=== PATIENT | female | born 1995 | race Caucasian/White ===

== ENCOUNTER 2020-06-20 17:45 | Emergency (ER) | payer OTHER, SELFPAY ==
--- NOTE | ~2020-06-20 | CT_ITS ---
EXAMINATION: CT brain wo con DATE: 06/20/2020 18:42 INDICATION: Head injury. Headache. TECHNIQUE: Computed tomography (CT) of the head was performed without intravenous contrast. The mA wa s adjusted according to patient size. Iterative reconstruction technique was employed. The dose-lengt h product was 605.33 mGy-cm. COMPARISON: None FINDINGS: There is no intracranial hemorrhage, acute infarction, or abnormal intracranial mass lesion . The ventricles are normal in size. The orbits are normal. The paranasal sinuses are clear. The mast oid air cells are normal. There is right posterior scalp soft tissue swelling. IMPRESSION: 1. Normal brain. Reviewed, dictated and finalized at location A. IMPRESSION: 1. Normal brain.
[2020-06-20 17:46] VITALS: BP 111/78; PULSE 84; RESP 17; TEMP 36.7; O2SAT 98
--- NOTE | 2020-06-20 18:12 | PC.NURSE ---
pt c/o pain down left side of neck and into left shoulder.
--- NOTE | 2020-06-20 18:49 | ED.HEATRA ---
HPI - Head Injury General Chief complaint: Head Injury Stated complaint: head injury Time Seen by Provider: 06/20/20 18:08 Source: patient Mode of arrival: ambulatory Limitations: no limitations History of Present Illness HPI Narrative: Patient presents with chief complaints of laceration to the posterior aspect of her head accompanied by headache, slightly blurry vision, nausea that began after falling backwards off her long board and striking her head on the asphalt. Patient states that she feels as if she was going to pass out but she does not think that she did. Patient states initially she had very blurry vision, tinnitus, and was unsteady on her feet. Patient states that she still feels a little off balance when standing. Patient denies any other areas of pain or injury. Patient denies recent head injury or any medical conditions. Patient reports taking for acne and control pills. Related Data Home Medications Medication Instructions Recorded Confirmed fluticasone propionate [Flonase 1 spray INTRANASAL BID 06/20/20 Allergy Relief] loratadine [Claritin] 10 mg PO 06/20/20 Allergies Allergy/AdvReac Type Severity Reaction Status Date / Time amoxicillin Allergy Unknown Hives Verified 06/20/20 18:08 Review of Systems Review of Systems: Narrative: CONSTITUTIONAL: Denies fever, chills, or sweats. EYES: Reports slightly blurry vision denies redness, or discharge. ENT: Reports resolved tinnitus denies rhinorrhea, congestion, sore throat, or otalgia. CARDIOVASCULAR: Denies chest pain, palpitations, or edema. RESPIRATORY: Denies cough or dyspnea. GASTROINTESTINAL: Denies abdominal pain, nausea, vomiting, or diarrhea. GENITOURINARY: Denies dysuria or hematuria. SKIN: Denies rash or itching. MUSCULOSKELETAL: Denies back pain, myalgia, or joint pain NEUROLOGIC: Reports headache denies numbness, dizziness, or weakness. PSYCHIATRIC: Denies anxiety or depression. [facility] Family History Family History (Updated 02/09/17 @ 12:27 by DOCTOR UNKNOWN) Grandparent Diabetes mellitus Family history of lung cancer Family history of thyroid disease Father Family history of sleep apnea Social History Social History Smoking status: Never smoker Second hand tobacco smoke exposure: No Alcohol intake: never Gender identity (if verbalized by the patient): Female Exam Narrative: Exam Narrative: GENERAL: Well-appearing, well-nourished. HEAD: 3 cm L-shaped laceration to the posterior aspect of her scalp. Superficial, well approximated and non-gaping. No skull dividing palpated. EYES: PERRLA and EOMI. no hyphema ENT: Nares clear, no rhinorrhea or epistaxis. Mucous membranes moist. Oropharynx without tonsillar hypertrophy exudate or other lesions. Bilateral TMs pearly gilbert nonbulging. No hemotympanum. NECK: Supple. No adenopathy or masses. No vertebral tenderness or loss of ROM. CHEST: Clear to auscultation. No respiratory distress. No wheezes rales or rhonchi HEART: Regular rate and rhythm. EXTREMITIES: No acute changes in ROM. No edema. No pain with range of motion SKIN: Warm, dry, no rash. NEURO: No focal deficits. Alert and oriented x3. PSYCH: Normal mood and affect. Course Vital Signs Vital signs: Vital Signs Temperature 98.1 F 06/20/20 17:46 Pulse Rate 84 06/20/20 17:46 Respiratory Rate 17 06/20/20 17:46 Blood Pressure 111/78 06/20/20 17:46 Pulse Oximetry 98 06/20/20 17:46 Temperature 98.1 F 06/20/20 17:46 Pulse Rate 84 06/20/20 17:46 Respiratory Rate 17 06/20/20 17:46 Blood Pressure 111/78 06/20/20 17:46 Pulse Oximetry 98 06/20/20 17:46 MDM - Head Injury MDM Narrative Medical decision making narrative: Patient is concerned that with a headache, blurry vision (although improving), and nausea that she may have brain injury. Discussed with the patient risk associated with observation versus CT imaging. Wound care instructions and follow-up ins
[2020-06-20] MEDS: ONDANSETRON HCL ODT 4 MG TABLET PO (19:27)
[2020-06-20 20:23] VITALS: BP 122/74; PULSE 80; RESP 19; TEMP 36.3; O2SAT 98
[2020-06-20] MEDS: TETANUS,DIPHTHERIA,AC PERTUSSIS ADULT (0.5 ML) BOOSTRIX IM (20:23)
== END 2020-06-20 20:24 | disposition home or self-care (01) ==
PROVIDERS: Emergency Provider Emergency Medicine; PCP Family Medicine
DX: S09.90XA Unspecified injury of head, initial encounter (principal); V00.131A Fall from skateboard, initial encounter; Z23 Encounter for immunization
CPT/HCPCS: 70450; 90471; 90715; 99284; A9270

== ENCOUNTER 2024-04-19 14:21 | Outpatient (CLI) | payer OTHER, SELFPAY ==
[2024-04-21 12:39] LABS: NIL 0.01 IU/mL; Quantiferon TB Plus, 1T NEGATIVE (NEGATIVE)
== END 2024-04-19 14:22 | disposition home or self-care (01) ==
LOC: ANHGOSHLAB 14:22
PROVIDERS: PCP Family Medicine; Visit Provider Nurse Practitioner
DX: Z11.1 Encounter for screening for respiratory tuberculosis (principal)
CPT/HCPCS: 36415; 86480

== ENCOUNTER 2025-05-04 10:49 | Outpatient (CLI) | payer BC, SELFPAY ==
--- OUTSIDE RECORDS SUMMARY | 2025-05-04 10:51 | XMS_ITS | Referral Summary ---
Author Organization [facility] Address [address] [place] [id number] Care Team Providers Care Loan Funder Name Role Phone Vazquez Brown MD Primary Care Provider [phone] Leanne Caicedo MD Unavailable [phone] Allergies Active Allergy Reactions Criticality Noted Date Comments Amoxicillin Hives Medium 01/13/2021 Medications buPROPion XL (WELLBUTRIN XL) 150 mg 24 hr tablet Take 150 mg by mouth daily 1 Active clindamycin (CLEOCIN T) 1 % lotion Apply topically 2 (two) times a day Active tretinoin (RETIN-A) 0.025 % cream Apply topically nightly Active naproxen (NAPROSYN) 500 mg tablet Take 500 mg by mouth 2 (two) times a day with meals Active spironolactone (ALDACTONE) 100 mg tabletIndicatio ns:Acne vulgaris Take 1 tablet (100 mg total) by mouth daily Start with 50mg (1/2 tablet) for 1 week 30 tablet 11 4 07/18/20 25 Active cyproheptadine (PERIACTIN) 4 mg tabletIndicatio ns:Cholinergic urticaria Take 1 tablet (4 mg total) by mouth 3 (three) times a day 270 tablet 3 4 07/18/20 25 Active aluminum chloride (DRYSOL) 20 % external solutionIndicat ions:Hyperhidro sis Thin layer to AA axilla nightly 60 mL 11 4 Active Active Problems No known active problems Social History Tobacco Use Types Packs/Day Years Used Date Smoking Tobacco: Never Smokeless Tobacco: Never Tobacco Cessation:Counseling Given: Not Answered Comments Unknown Sex and Gender Information Value Date Recorded Sex Assigned at Not on file 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 Gender Identity Not on file Sexual Orientation Not on file Last Filed Vital Signs Vital Sign Reading Time Taken Comments Blood Pressure 110/62 08/03/2022 10:59 AM CDT Pulse - - Temperature - - Respiratory Rate - - Oxygen Saturation - - Inhaled Oxygen Concentration - - Weight 54.9 kg (121 lb) 08/03/2022 10:59 AM CDT Height 162.6 cm (5' 4) 08/03/2022 10:59 AM CDT Body Mass Index 20.77 08/03/2022 10:59 AM CDT Plan of Treatment Not on file Insurance [facility] CHOICE PLUS [facility] HMO/PPO Address: [address] [place] [address] [employer] Member Subscriber Plan / Payer (Ef fective 2006-Present) Name:Cristine Kilpatrick Relation to Subscriber:Self Name:Cristine Kilpatrick Payer ID:[id number] (NAIC) Group ID:[id number] Type:[employer]IG[employer] HMO/PPO Address: [address] [place] [address] Care Teams Loan Funder Relationship Specialty Start Date End Date Vazquez Brown MD [address] [place] [address] PCP - General Family Practice 10/08/20 [place] [address] [place] [address] Consulting Physician Obstetrics and Gynecology 07/31/22
--- OUTSIDE RECORDS SUMMARY | 2025-05-04 10:51 | XMS_ITS | Clinical Summary ---
Author Organization [address] [address] Care Team Providers Care Ground Operations Supervisor Name Role Phone Vazquez Brown MD Primary Care Provider [phone] Leanne Caicedo MD Unavailable [phone] Allergies Active Allergy Reactions Criticality Noted Date [...] Active Active Problems No known active problems Surgical History Surgery Date Site/Laterality Comments WISDOM TOOTH EXTRACTION 10/04/2011 - 10/03/2012 Medical History Medical History Date Comments Anxiety Acne Family History Medical History Relation Name Comments No Known Problems Father No Known Problems Mother Breast cancer Neg Hx Colon cancer Neg Hx Ovarian cancer Neg Hx Relation Name Status Comments Father Alive Mother Alive Social History Tobacco Use Types Packs/Day Years Used Date Smoking Tobacco: Never Smokeless Tobacco: Never Tobacco Cessation:Counseling Given: Not Answered Comments Unknown Sex and Gender Information Value Date Recorded Sex Assigned at Not on file 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 Gender Identity Not on file Sexual Orientation Not on file Obstetrics History Para Term AB IAB SAB Ectopic Multiple Livin g Live Births 0 0 0 0 0 0 0 0 0 0 0 Last Filed Vital Signs Vital Sign Reading [...] 08/03/2022 10:59 AM CDT Plan of Treatment Health Maintenance Due Date Last Done Comments Cervical Cancer Screening 1996 Depression Screening 1996 Hepatitis C Screening 1996 Varicella Vaccines (1 of 2 - 13+ 2-dose series) 2009 Hepatitis B Screening 2014 Regular Well Visit/Exam 18-64 2014 HPV Vaccines (1 - 3-dose SCD M series) 2023 Influenza Vaccine (#1) 2025 DTaP/Tdap/Td Vaccine (3 - Td or Tdap) 06/20/2030 06/20/2020, 06/15/2013 Pneumococcal vaccine <65 Aged Out No longer eligible based on patient's age to complete this topic Insurance [facility] CHOICE PLUS [employer] IBEW Member Subscriber Plan / Payer (Ef fective 2006-Present) Name:Cristine Kilpatrick Relation to Subscriber:Self Name:Cristine Kilpatrick Payer ID:[id number] (NAIC) Group ID:[id number] Type:CIG[employer] HMO/PPO Address: [address] [place] [address] Care Teams Ground Operations Supervisor Relationship Specialty Start Date End Date Vazquze Brown MD [address] [place] [address] PCP - General Family Practice 10/08/20 [place] [address] [place] [address] Consulting Physician Obstetrics and Gynecology 07/31/22
--- OUTSIDE RECORDS SUMMARY | 2025-05-04 10:51 | XMS_ITS | Encounter Summary ---
Author Organization [facility] Address [address] [place] [address] Phone Care Team Providers Care Dispensing And Measuring Optician Name Role Phone Vazquez Brown MD Primary Care Provider [phone] Leanne Caicedo MD Unavailable [phone] Encounter Details Date Type Department Care Team (Late st Contact Info) Description 08/15/2020 Orders Only [facility] Scanning, Provider Social History Tobacco Use Types Packs/Day Years Used Date Smoking Tobacco: Never Assessed Comments Unknown Sex and Gender Information Value Date Recorded Sex Assigned at Not on file 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 Gender Identity Not on file Sexual Orientation Not on file documented as of this encounter Plan of Treatment Not on file documented as of this encounter Procedures Procedure Name Priority Date/Time Associated Diagnosis Comments SCAN - LABS 08/15/2020 documented in this encounter Results * SCAN - LABS (08/15/2020) us Provider Scanning Final Result documented in this encounter Visit Diagnoses Not on filedocumented in this encounter Care Teams Dispensing And Measuring Optician Relationship Specialty Start Date End Date Vazquez Brown MD [address] [place] [address] PCP - General Family Practice 10/08/20 [place] [address] [place] [address] Consulting Physician Obstetrics and Gynecology 07/31/22 documented as of this encounter
[2025-05-04 14:45] LABS: Hematocrit 41.8 % (37.0-47.0); Hemoglobin 13.1 g/dL (12.0-15.0); Immature Granulocyte Percent A 0.3 % (0-0.5); Lymphocytes Absolute Auto 1.57 K/mm3 (0.9-3.2); Mean Corpuscular HGB Conc 31.3 g/dl (32-36); Mean Corpuscular Hemoglobin 29.4 pg (26-34); Mean Corpuscular Volume 93.7 fl (80-100); Nucleated Red Blood Cells Absolute Auto 0.000 K/mm3 (0.0-0.012); Nucleated Red Blood Cells Perc 0.0 % (0.0-0.2); Platelet Count Result 310 k/mm3 (150-375); Red Blood Count 4.46 M/mm3 (4.2-5.4); White Blood Count 10.2 K/mm3 (4.5-10.0)
[2025-05-04 15:27] LABS: Thyroid Stimulating Hormone Reflex 1.700 uIU/mL (0.465-4.68)
[2025-05-04 15:28] LABS: Alanine Aminotransferase 14 U/L (6-35); Albumin Level 4.9 g/dL (3.5-5.1); Alkaline Phosphatase 50 U/L (38-126); Anion Gap 11 mmol/L (4-12); Aspartate Amino Transferase 30 U/L (14-36); Bilirubin,Total 0.4 mg/dL (0.2-1.3); Blood Urea Nitrogen 8 mg/dL (7-17); Calcium 9.8 mg/dL (8.4-10.2); Carbon Dioxide 25 mmol/L (22-30); Chloride 106 mmol/L (98-107); Cholesterol 161 mg/dL (0-200); Estimated Glomerular Filt Rate > 60; Glucose 84 mg/dL (65-110); HDL Direct 50 mg/dL; Magnesium 2.0 mg/dL (1.6-2.3); Potassium 3.9 mmol/L (3.4-5.0); Sodium 142 mmol/L (137-145); Total Protein 8.5 g/dL (6.3-8.2); Triglycerides 66 mg/dL (<150)
[2025-05-04 16:18] LABS: Vitamin B12 235.0 pg/mL (239-931)
== END 2025-05-04 10:50 | disposition home or self-care (01) ==
LOC: ANHGOSHLAB 10:50
PROVIDERS: PCP Family Medicine; Visit Provider Nurse Practitioner Family
DX: Z00.00 Encounter for general adult medical examination without abnormal findings (principal); E55.9 Vitamin D deficiency, unspecified
CPT/HCPCS: 36415; 80053; 80061; 82306; 82607; 83735; 84443; 85025; 86480